=== PATIENT | male | born 1960 | race Caucasian/White ===

== ENCOUNTER 2022-08-07 06:25 | Day surgery (SDC) | payer OTHER ==
[~2022-08-07] VITALS: Ht 185.4 cm; Wt 99.1 kg
[~2022-08-07 06:25] MED LIST: AMLODIPINE BESY10 MG PO; LEVOTHYROXINE50 MCG PO; LISINOPRIL20 MG PO; OMEPRAZOLE20 MG PO
--- NOTE | 2022-08-07 08:39 | NUR ---
08/07/22 0839 Toña Donaldson 0810 PT ARRIVED IN PACU SLEEPY WITH NO C/O'S. ABD SOFT. 0820 AT BEDSIDE TALKING WITH PT. ALL QUESTIONS ANSWERED. 0835 SITTING UP IN BED SIPPING ON WATER.
--- NOTE | 2022-08-08 17:55 | OR ---
[facility] [address], [place] [address] Signed DATE OF OPERATION: 08/07/2022 SURGEON: Christiano Pantoja MD PREOPERATIVE DIAGNOSIS: History of colonic polyps x2. POSTOPERATIVE DIAGNOSIS: Sigmoid diverticulosis. No evidence of recurrent polyp. PROCEDURE: Total colonoscopy to cecum. ANESTHESIA: Intravenous sedation; fentanyl 100 mcg and Versed 5 mg. INDICATION: This 62-year-old white man is a patient of Dr. Grecia Sarkar. He underwent colonoscopy in 2011, which showed an adenomatous polyp at 20 cm and a fragmented hyperplastic polyp at the lower rectum. He is symptom free and has no family history of colon cancer. He is admitted at this time to undergo surveillance colonoscopy. He understands the risk of bleeding, infection, perforation. FINDINGS: The prep was good. Complete colonoscopy was undertaken of the cecum. He had no sign of recurrent polyp. Numerous diverticula were noted in the sigmoid, but they were small. There were no other findings of concern. DESCRIPTION OF PROCEDURE: The patient was brought to the endoscopy suite and placed in the lateral decubitus position, given intravenous sedation to the point of slurred speech and nystagmus. Digital rectal examination was normal. An Olympus video colonoscope was passed in the rectum and manipulated throughout the colon noting small diverticula of the sigmoid and left colon. Scope was ultimately advanced to the cecum. The ileocecal valve and appendiceal orifice were normal. The scope was withdrawn and examination throughout showed no sign of abnormality, specifically no polyps or colitis but he did have diverticula as noted. Retroflexed view of the rectum was normal. Scope was removed and the patient was taken to the recovery room in good condition. Electronically Signed By: CHRISTIANO PANTOJA MD 08/08/22 1755 PATIENT NAME: KACI STERN OPERATIVE REPORT DATE OF : 60 REPORT #: [id number] PHYSICIAN: CHRISTIANO PANTOJA MD PCP: GRECIA SARKAR MD REPORT IS CONFIDENTIAL AND NOT TO BE RELEASED WITHOUT AUTHORIZATION [facility] [address], [place] [address] Signed CONCLUDING DIAGNOSIS: Diverticulosis. No evidence of polyps. PLAN: Recommend repeat colonoscopy in 5 to 7 years, sooner if symptoms should occur. He will return to the ongoing care of Dr. Sarkar. MD KAMRAN Manzano/MODL /[id number] cc: Grecia Sarkar MD Copies: GRECIA SARKAR DMD ~ Electronically Signed By: CHRISTIANO PANTOJA MD 08/08/22 1755 PATIENT NAME: KACI STERN OPERATIVE REPORT DATE OF : 60 REPORT #: [id number] PHYSICIAN: CHRISTIANO PANTOJA MD PCP: GRECIA SARKAR MD REPORT IS CONFIDENTIAL AND NOT TO BE RELEASED WITHOUT AUTHORIZATION
== END 2022-08-07 08:52 | disposition home or self-care (01) ==
LOC: DS 06:25 → OPS 06:25 → DS 07:30 → OPS 08:52
PROVIDERS: ATTEND Surgery
DX: Z12.11 Encounter for screening for malignant neoplasm of colon (principal); K57.30 Diverticulosis of large intestine without perforation or abscess without bleeding; Z86.010 Personal history of colon polyps; I10 Essential (primary) hypertension; Z79.899 Other long term (current) drug therapy
CPT/HCPCS: 99153; G0500; J2250; J3010; J7121